=== PATIENT | male | born 1965 | race American Indian/Alaskan Native ===

== ENCOUNTER 2017-04-26 21:05 | Emergency (ER) | payer OTHER, BC ==
[2017-04-26] MEDS ORDERED: TYLENOL PO ONE (21:30)
[2017-04-26] MEDS ORDERED: TYLENOL ONE (21:34)
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
[2017-04-27] MEDS ORDERED: MOTRIN PO ONE (03:19)
[2017-04-27 04:23] VITALS: BP 149/99
== END 2017-04-27 04:00 | disposition home or self-care (01) ==
LOC: ED 21:05
DX: S13.4XXA Sprain of ligaments of cervical spine, initial encounter (principal); J30.9 Allergic rhinitis, unspecified; I10 Essential (primary) hypertension; F17.200 Nicotine dependence, unspecified, uncomplicated; V89.2XXA Person injured in unspecified motor-vehicle accident, traffic, initial encounter; Y93.89 Activity, other specified; Y99.8 Other external cause status; Y92.89 Other specified places as the place of occurrence of the external cause
CPT/HCPCS: 99282